=== PATIENT | male | born 1980 | race Caucasian/White ===

== ENCOUNTER 2017-02-07 01:52 | Emergency (ER) | payer OTHER ==
[~2017-02-07] VITALS: Ht 185.4 cm; Wt 120.7 kg
[~2017-02-07 01:52] MED LIST: ADVIL,NUPRIN,M200 MG PO; ALEVE220 MG PO; ASPIR-LOW81 MG PO; ATORVASTATIN CA40 MG PO; AUGMENTIN875 MG PO; Bactrim,Septra DS 80 PO; CETRAXAL1 EACH BOTH EARS; COLACE100 MG PO; FLAGYL500 MG PO; MOTRIN600 MG PO; NAPROSYN500 MG PO; NOHOMEMEDS; NOVOLIN N100 UNITS/ SC; NOVOLOG 10100 UNITS/ SC; NOVOLOG PE100 UNITS/ SC; TYLENOL WITH C1 EACH PO; Tylenol Extra Streng PO; ULTRAM50 MG PO
[2017-02-07 02:09] LABS: POINT-OF-CARE METER ID UU13113778
[2017-02-07 02:20] LABS: CARBON DIOXIDE (BICARBONATE) 24.5 MEQ/L (20-31); EOSINOPHIL (%) 0.2 % (0-5); HEMATOCRIT 45.3 % (38.0-50.0); IMMATURE GRANULOCYTE (%) 0.8 % (0.0-0.7); IMMATURE GRANULOCYTE COUNT 0.1 K/uL; LYMPHOCYTE COUNT 1.7 K/uL (1.0-2.8); MCH 31.7 PG (29.0-34.0); MCHC 37.1 G/DL (30.0-36.0); MCV 85.5 FL (86-99); MEAN PLAT.VOLUME 9.4 uM^3 (9.0-12.4); MONOCYTE (%) 5.2 % (3-12); MONOCYTE COUNT 0.5 K/uL (0-0.8); NEUTROPHIL (%) 77.2 % (45-76); PLATELET COUNT 241 K/uL (156-360); RBC DIS.WIDTH-SD 39.8 % (39-53); WHITE BLOOD COUNT 10.3 K/uL (4.1-10.2)
[2017-02-07] MEDS ORDERED: NOVOLIN N100 UNITS/ SC (02:46)
[2017-02-07 03:47] LABS: TRIGLYCERIDES 2360 MG/DL (Normal: <150)
[2017-02-07 03:58] VITALS: BP 154/76
[2017-02-07 04:12] LABS: POINT-OF-CARE METER ID UU14100415
[2017-02-07 04:16] LABS: ALKALINE PHOSPHATASE 118 IU/L (3-129); ANION GAP 14 MEQ/L (2-14); CHLORIDE 98 MEQ/L (99-109); DIRECT BILIRUBIN 0.1 mg/dL (0.0-0.3); GFR ESTIMATE (CALCULATED) > 59 mL/min/; GLUCOSE 337 mg/dL (70-99); LIPASE 43 U/L (1.0-51.0); POTASSIUM 4.5 MEQ/L (3.7-5.4); SAMPLE HEMOLYSIS CHECK 3; SAMPLE ICTERIC CHECK 0; SAMPLE LIPEMIA CHECK 1; SODIUM 132 MEQ/L (136-147); TOTAL BILIRUBIN 0.6 MG/DL (0.0-1.0); UREA NITROGEN (BUN) 16 mg/dL (9-23)
== END 2017-02-07 04:00 | disposition home or self-care (01) ==
LOC: EME 01:52
PROVIDERS: Emergency Medicine
DX: E11.65 Type 2 diabetes mellitus with hyperglycemia (principal); E78.1 Pure hyperglyceridemia; E86.0 Dehydration; Z91.14 Patient's other noncompliance with medication regimen; K21.9 Gastro-esophageal reflux disease without esophagitis; Z87.891 Personal history of nicotine dependence
CPT/HCPCS: 80048; 80076; 81003; 82803; 82948; 83690; 84478; 85025; 99281; 99284; J7030